=== PATIENT | male | born 1975 | race Two or more races ===

== ENCOUNTER 2016-03-27 11:22 | Emergency (ER) | payer SELFPAY ==
[2016-03-27] MEDS ORDERED: IOPAMIDOL 370 (76%) 100 ML VIAL IV ONE (11:23)
[2016-03-27 13:24] LABS: ABSOLUTE NEUTROPHIL COUNT 5.3 K/mm3 (1.8-7.7); BASO % 0.5 % (0.2-1.0); EOS # 0.1 (0.0-0.5); EOS % 0.7 % (0.9-2.9); HEMATOCRIT 48.2 % (32.0-52.0); HEMOGLOBIN 16.9 gm/l (14.0-18.0); IMM NEUT% 0.3 % (0-1); LYMPH # 1.7 (1.0-4.8); LYMPH % 22.3 % (15-45); MEAN CELL VOLUME 85.9 fl (80.0-94.0); MEAN CORPUSCULAR HEMOGLOBIN 30.1 pg (27.0-31.0); MEAN CORPUSCULAR HGB CONC 35.1 g/dl (33.0-37.0); MONO # 0.4 (0.0-0.8); MONO % 5.6 % (4-12); NEUT % 70.6 % (43-75); PLATELET COUNT 243 K/mm3 (130-400); RED CELL DISTRIBUTION WIDTH 11.8 % (11.5-14.5)
[2016-03-27] MEDS ORDERED: ASPIRIN CHEWTAB 81 MG TABLET ONE (13:28)
[2016-03-27 14:03] LABS: ALB/GLOB RATIO 1.8 (>1.0); ALBUMIN 4.9 gm/dL (3.5-5.7); CALCIUM 9.7 mg/dL (8.6-10.3); MAGNESIUM 2.2 mg/dL (1.9-2.7)
--- NOTE | 2016-03-27 14:04 | CT ---
ADDENDUM #1 3D imaging was not performed. ORIGINAL REPORT CHEST CTA HISTORY: Tachycardia with right ventricular hypertrophy and incomplete right bundle branch block. TECHNIQUE: Following the administration of 80 mL Isovue-370 intravenous contrast, contiguous axial images were acquired from the thoracic inlet to the diaphragmatic hiatus for CT pulmonary angiography. FINDINGS: PULMONARY ARTERIAL TREE: Technically adequate enhancement: No dominant filling defects. THORACIC AORTA: Normal caliber. No evidence of dissection. LUNGS: No gross airspace abnormality. No pleural effusion. REMY AND MEDIASTINUM: No abnormally enlarged lymph nodes. AXILLAE: No grossly enlarged lymph nodes. UPPER ABDOMEN:No gross mass effect. OSSEOUS STRUCTURES: No grossly destructive lesions. IMPRESSION: No CTA evidence of proximal order pulmonary embolus. Results were electronically transmitted to the electronic medical record at 03/27/2016 at 1401 hours.
[2016-03-27] MEDS ORDERED: DIAZEPAM 5 MG TABLET ONE (15:17)
== END 2016-03-27 15:42 | disposition home or self-care (01) ==
LOC: ED 11:22
DX: R00.2 Palpitations (principal); I45.10 Unspecified right bundle-branch block
CPT/HCPCS: 83880; 85025; 80053; 83735; 84484; 71275; 99284 ×2; A9270 ×2; Q9967